=== PATIENT | female | born 1950 | race Caucasian/White ===

== ENCOUNTER 2018-01-17 04:36 | Emergency (ER) | payer MEDICARE, OTHER, SELFPAY ==
[2018-01-17 04:36] VITALS: PULSE 12; RESP 6; O2SAT 61; BMI 25.0
[2018-01-17 04:45] VITALS: BP 00/00; BMI 25.0
--- NOTE | 2018-01-17 06:08 | ED_ITS ---
ED Disposition Clinical Impression: Cardiac arrest, Sudden cardiac Disposition: Condition on Discharge: Critical - Critical Care Critical Care Time: No Attestation: On 01/17/18, the high probability of a clinically significant, sudden or life threatening deterioration of the following system(s) required my full and direct attention, intervention and personal management. The time I documented below is in addition to time spent performing reported procedures but includes the following listed in this critical care notation. Medical Decision Making - Medical Records Medical records reviewed: Yes: I reviewed the patient's medical records. - Jamal Inquiry Pt receiving controlled substance: No Vital Signs: 01/17/18 04:36 Pulse Rate [Apical] 12 L Respiratory Rate 6 L 02 Sat by Pulse Oximetry 61 L Oxygen Delivery Method Ambu-Bag Orders (Tests/Meds): ED MEDICATIONS Discontinued Medications Generic Name Dose Route Start Last Admin Trade Name Freq PRN Reason Stop Dose Admin Atropine Sulfate 1 mg 01/17/18 05:42 01/17/18 04:39 Atropine 1mg/10ml Syringe IV 01/17/18 05:43 1 mg ONCE ONE Administration Arrhythmia/Palpitations HPI - General Chief Complaint: Cardiac Arrest/CPR Stated Complaint: Unresponsive Time Seen by Provider: 01/17/18 04:40 Mode of Arrival: EMS Limitations: No Limitations - History of Present Illness HPI narrative: pt with code blue on arrival- had been given epi x 3 - see chart Onset (ago): minute(s) Duration: constant Severity: severe Arrhythmia history: other Treatments prior to arrival: vagal maneuvers, cardioversion - Related Data Home Medications Medication Instructions Recorded Confirmed predniSONE [Deltasone 20mg 20 mg PO DAILY 01/17/18 01/17/18 tablet] Allergies Allergy/AdvReac Type Severity Reaction Status Date / Time TUBERCULIN Allergy Mild Hives Uncoded 01/17/18 05:16 [facility] History I have reviewed the patient's past medical history: Yes Medical History: Reports:: Diabetes Mellitus Type 2, MRSA Denies:: Cancer, Diabetes Mellitus Type 1 Amputation: No - Social History Alcohol Intake: never - Psychiatric History Expresses thoughts of harming self/others: None Suicide Plan Description: No Plan ROS Obtained: Yes unobtainable due to endotracheal tube Physical Exam - General General appearance: in distress, other - Head Head exam: normocephalic - Eye Eye exam: Present: other (fixed/dilated) - ENT ENT exam: Present: other (intubated) - Respiratory Respiratory exam: Present: respiratory distress - Cardiovascular Cardiovascular exam: Present: other (agonal) - Abdominal Exam Abdominal exam: Present: soft - Neurological Exam Neurological exam: Present: other (no focal changes) - Skin Skin exam: Present: cyanosis
[2018-01-17 06:10] VITALS: BP 00/00; PULSE 0; RESP 0; TEMP -17.7; TEMP 0; O2SAT 0
== END 2018-01-17 06:52 | disposition expired ==
PROVIDERS: Emergency Provider Emergency Medicine; Family Provider Family Medicine
DX: I46.9 Cardiac arrest, cause unspecified (principal); E11.9 Type 2 diabetes mellitus without complications
CPT/HCPCS: 31500; 93041; 96374; 99211; 99291